=== PATIENT | male | born 1965 | race Caucasian/White ===

== ENCOUNTER → 2018-07-13 | Outpatient (CLI) | payer SELFPAY ==
[2018-06-13 16:17] VITALS: BMI 30.4
--- NOTE | 2018-07-13 14:06 | ECHOD_ITS ---
Reason For Study: HCM, family hisotory of HCM. Procedure This was a 2D Doppler, Color Flow transthoracic echocardiogram. Exam performed in department. Left Ventricle Normal LV size. Left ventricular systolic function is normal. The estimated ejection fraction is 60 %. Normal diastology for age. No regional wall motion abnormalities noted. Right Ventricle Normal RV size. Normal systolic function. Atria Normal left atrium. Normal right atrium. Mitral Valve Normal mitral valve. Tricuspid Valve Normal tricuspid valve. Aortic Valve Normal aortic valve. Trisinus/trileaflet aortic valve. Pulmonic Valve Normal pulmonic valve. Great Vessels Normal aortic root. The pulmonary artery is normal size. Normal inferior vena cava. Pericardium/Pleural No pericardial effusion. MMode/2D Measurements & Calculations LVIDd: 4.2 cm IVSd: 0.96 cm Ao root diam: 2.7 cm LVIDs: 2.9 cm LVPWd: 0.96 cm RVDd: 3.8 cm FS: 31.9 % LAV(MOD-bp): 51.7 ml LA A4 area: 18.3 cm2 LA dimension(2D): 3.9 cm LAV(MOD-bp) Indexed: 24.5 ml/m2 LAV(MOD-sp2): 51.2 ml LAV(MOD-sp4): 51.0 ml RA A4 area: 18.4 cm2 Time Measurements MV dec time: 0.24 sec Doppler Measurements & Calculations MV E max jignesh: 74.7 cm/sec Lat Peak E' Jignesh: 8.8 cm/sec Med Peak E' Jignesh: 7.3 cm/sec MV A max jignesh: 56.4 cm/sec E/E' lat: 8.5 E/E' med: 10.2 MV E/A: 1.3 Ao V2 max: 112.1 cm/sec LV V1 max: 104.6 cm/sec PA V2 max: 129.4 cm/sec Ao max P.0 mmHg LV V1 max P.4 mmHg Interpretation Summary Normal LV size. Left ventricular systolic function is normal. The estimated ejection fraction is 60 %. Normal diastology for age. Structurally normal valves. Ordering Physician: Stephen Arthur Referring Physician: Dayo Vasques Performed By: Lolly Bear, AMARA, RVT
== END | disposition home or self-care (01) ==
PROVIDERS: Family Provider Family Medicine; PCP Family Medicine; Referring Provider Internal Medicine Cardiovascular Disease; Visit Provider Internal Medicine Cardiovascular Disease
DX: I42.2 Other hypertrophic cardiomyopathy (principal)
CPT/HCPCS: 93306